=== PATIENT | male | born 1955 | race Caucasian/White ===

== ENCOUNTER 2017-06-28 15:09 | Inpatient (IN) | payer MEDICARE ==
[~2017-06-28] VITALS: Ht 182.9 cm; Wt 137.4 kg
[2017-06-28 15:15] VITALS: BP 138/65
[2017-06-28] MEDS ORDERED: LEVEMIR SUBQ (15:19)
[2017-06-28] MEDS ORDERED: MAGOX 400400 MG PO (15:19)
[2017-06-28] MEDS ORDERED: LISINOPRIL20 MG PO (15:19)
[2017-06-28] MEDS ORDERED: EFFEXOR XR75 MG PO (15:19)
[2017-06-28] MEDS ORDERED: METFORMIN HCL500 MG PO (15:19)
[2017-06-28] MEDS ORDERED: LOPRESSOR100 M1 PO (15:19)
[2017-06-28] MEDS ORDERED: ASPIR 8181 MG PO (15:19)
[2017-06-28 15:50] LABS: ABSOLUTE BASOPHILS 0.1 thou/uL (0.0-0.2); ABSOLUTE EOSINOPHILS 0.1 thou/uL (0.0-0.7); ABSOLUTE MONOCYTES 0.8 thou/uL (0.0-1.2); BASOPHILS 1.3 %; EOSINOPHILS 0.5 %; HEMATOCRIT 40.5 % (42.0-52.0); HEMOGLOBIN 13.6 gm/dL (14.0-18.0); LYMPHOCYTES 18.5 %; MCH 26.9 pg (26.0-34.0); MCHC 33.6 g/dL (28.0-37.0); MONOCYTES 6.9 %; MPV 8.6 fl. (7.2-11.1); NUCLEATED RBCS 0 /100WBC; PLATELET COUNT* 295 thou/uL (150-400); POLYS 72.8 %; RBC 5.07 mil/uL (4.50-6.00); RDW-CV 14.3 % (10.5-14.5)
[2017-06-28 15:58] LABS: CALCIUM 8.6 mg/dL (8.5-10.1); POTASSIUM 3.6 mmol/L (3.5-5.1)
--- NOTE | 2017-06-28 16:00 | NUR ---
PATIENT STATED THAT HE HAS BECOME HOMELESS OF 2 DAYS AGO AND HAS NOT RUN OUT OF MONEY SO OUT IN THE HEAT
[2017-06-28 16:15] LABS: ALBUMIN 3.5 g/dL (3.4-5.0); TOTAL BILIRUBIN 0.5 mg/dL (<0.1-1.0); TOTAL PROTEIN 7.1 g/dL (6.4-8.2)
[2017-06-28 16:16] LABS: NT-PRO BRAIN NAT PEPTIDE 224 pg/mL (<300); TROPONIN-I LEVEL <0.06 ng/mL (<0.06)
[2017-06-28 18:16] VITALS: BP 144/75
[2017-06-28 18:38] VITALS: BP 152/77
[2017-06-28] MEDS ORDERED: MELATONIN3 MG PO (18:41)
[2017-06-28] MEDS ORDERED: RISPERDAL0.5 MG PO (18:43)
[2017-06-28] MEDS ORDERED: LIPITOR80 MG PO (18:46)
--- NOTE | 2017-06-28 19:03 | NUR ---
REPORT RECIEVED FROM YESSY MATAMOROS IN ER OF EXPECTED TRANSFER AT 1800- DX: ARF ADN HEAT EXHAUTION- PT ARRIVED TO UNIT VIA CART AT 1821- PT TRANSFERED SBA WITH BED, STEADY GAIT NOTED- PT A&O X4- CONTINENT OF BOWEL AND BLADDER- LCTA, DIMINSHED IN BASES- VS 97.6 18 152/77 79 97% ON RA- DYSPNEA NOTED ON EXERTION- ABDOMEN OBESE/ROUND/NON-TENDER, BS X4 QUADS- PT REPORTS LAST BM THIS AM- SKIN C/D/I, SUN BURN, TATTOS, AND SCARS NOTED- IV NOTED TO RIGHT HAND INTACT, IVF INFUSING PRESCIBED- PT REPORTS TO HAVE RAN OUT OF MONEY AND HAS BEEN HOMELESS FOR 2 DAYS- HAS BELONGINGS AND MEDICATIONS WITH HIM AT TIME OF D/C- MEDICATIONS RECCONCILLED AND HOME MEDS SENT TO PHARMACY- PT REPORTS TO BE RECOVERED ALCOHOLIC AND HAS RELAPSED A FEE TIMES HERE RECENTLY BUT DENIES USE AT THIS CURRENT TIME- CHEWS TOBACCO- DENEIS ANY C/O PAIN/DISCOMFORT AT THIS TIME- CALL LIGHT AND PERSONAL BELONGINGS WITH IN REACH- ALL NEEDS MET AT THIS TIME-[facility]
[2017-06-28 19:35] VITALS: BP 138/68
--- NOTE | 2017-06-29 03:10 | NUR ---
ASSUMED CARE OF PT AT 1900. PT IS ALERT AND ORIENTED. VSS. PERRLA. NO COMPLAINTS OF PAIN. STEADY GAIT. PT IS SLEEPING QUIETLY IN BED. RESPIRATIONS ARE EVEN AND NONLABORED. WILL CONTINUE TO MONITOR PT.
[2017-06-29 07:50] VITALS: BP 106/59
--- NOTE | 2017-06-29 11:43 | NUR ---
Nutrition: Consult received for "homeless." Pt stated he has lost about 90#. He now weighs about 260#. H/o drug/ETOH use. Pt seemed very confused about his diabetes. He stated he has been a "type 1" since 2004. He stated he hasn't been checking his BG. He thought his last A1c was 7.7%. BG today is in 300s, no A1c recorded. On Metformin. He stated he eats a lot of fruits but he can't tell me how much he eats, "I just don't know." Pt would benefit greatly from outpatient DM counseling, but he told me he has no insurance right now. RD offered education today, but pt refused. He seemed confused. Food and nutrition-related knowledge deficit R/T DM diet AEB pt report. RECOMMEND OUTPATIENT COUNSELING FOR NUTRITION. Mild risk. No other nutrition interventions at this time.
[2017-06-29 16:00] VITALS: BP 143/70
--- NOTE | 2017-06-29 16:52 | NUR ---
SW met with pt to complete initial assessment, introduce self and SW role. Pt said he understands he might dc tomorrow and said he was not sure of his plan. SW offered homeless assisted resources and pt said he knew that there was not one close to this area, only in . SW provided Homeless Senior Living hotline number and [employer] info. SW mentioned pt girlfriend but pt said that he did not have her number and that he has short term memory issues. SW to follow.
--- NOTE | 2017-06-29 18:57 | NUR ---
PT VSS THIS SHIFT, PT HAS NO COMPLAINT OF PAIN THIS SHIFT. PT TOLERATING DIET AND NO C/O NAUSEA OR NUMBNESS OR TINGLING AT THIS TIME. FLUIDS RUNNING THIS SHIFT WITH NO COMPLICATIONS
[2017-06-29 20:00] VITALS: BP 141/69
[2017-06-30 00:30] VITALS: BP 139/62
[2017-06-30 04:53] VITALS: BP 146/68
--- NOTE | 2017-06-30 05:15 | NUR ---
ASSUMED PT CARE AT 1930, PT IS A&OX4. PT IS ON RA SATTING MID TO HIGH 90'S. PT HAS IVF INGFUSING PER MAR. PT DENIES ANY PAIN OR NEEDS AT THIS TIME. PT IS UP AD DONALD IN HIS ROOM. APPEARS TO BE STABLE ON HIS FEET. BED IN LOW POSITION, CALL LIGHT IN REACH, HOURLY ROUNDING COMPLETED FOR PT SAFETY.
[2017-06-30 08:00] VITALS: BP 133/73
[2017-06-30 11:49] LABS: CALCIUM 8.9 mg/dL (8.5-10.1); POTASSIUM 4.1 mmol/L (3.5-5.1)
--- NOTE | 2017-06-30 13:04 | EKG ---
[place] [address] ELECTROCARDIOGRAM REPORT Name: GURJIT CHOWDARY Room: [address] IN .R.#: [id number] Admission: 06/28/17 Attend Phys: Kain Wellington Discharge: Date of : 57 Report #: [id number] THIS REPORT FOR: //name// [facility] ED Test Date: 2017-06-28 Test Time: 18:10:15 Pat Name: GURJIT CHOWDARY Department: Room: Gender: Certified Rehabilitation Counselor: : 1955 Requested By: Jessy Jaime Order Number: [id number] MD: Gregory Sandoval Measurements Intervals [place] Rate: 77 P: 51 IA: 158 QRS: 77 QRSD: 116 T: 73 QT: 503 QTc: 570 Interpretive Statements Sinus rhythm Probable left atrial enlargement Nonspecific intraventricular conduction delay Minimal ST depression, lateral leads No previous ECG available for comparison Electronically Signed On 06-30-2017 13:04:43 CDT by Gregory Sandoval [email or web address] <ELECTRONICALLY SIGNED> By: Gregory Sandoval MD, [facility] 06/30/17 1304 1810 181 Gregory Sandoval MD, [facility] /EPI
[2017-06-30 16:00] VITALS: BP 139/68
--- NOTE | 2017-06-30 20:09 | NUR ---
I ASSUMED CARE OF THE PATIENT AT 0700. HE IS ALERT AND ORIENTED X4 AND IS UP AD DONALD. BED IS IN THE LOW LOCKED POSITION AND CALL LIGHT IS IN REACH. HOURLY ROUNDING WAS COMPLETED AND PATIENT NEEDS WERE MET. PAIN IS DENIED. BLOOD WORK COMPLETEDAND INSULIN D/C'D. PATIENT IS PROGRESSING TOWARD GOALS AND I WILL CONTINUE TO MONITOR. FLUIDS ARE INFUSING AND PATIENT IS TOLERATING WELL.
[2017-06-30 20:40] VITALS: BP 143/65
[2017-07-01 04:12] LABS: HEMATOCRIT 41.3 % (42.0-52.0); HEMOGLOBIN 13.7 gm/dL (14.0-18.0); MCH 26.7 pg (26.0-34.0); MCHC 33.1 g/dL (28.0-37.0); MCV 80.5 fL (80.0-100.0); MPV 8.7 fl. (7.2-11.1); RBC 5.13 mil/uL (4.50-6.00); RDW-CV 14.1 % (10.5-14.5); WBC 7.7 thou/uL (4.0-11.0)
--- NOTE | 2017-07-01 04:31 | NUR ---
PATIENT HAS REMAINED ALERT AND ORIENTED X 4. DENIES PAIN OR NAUSEA. UP WITH STEADY GAIT. IVF'S AND MEDS PER ORDERS. VITAL SIGNS STABLE. AM LAB PENDING. CONTINUE TO MONITOR.
[2017-07-01 04:32] LABS: CALCIUM 8.7 mg/dL (8.5-10.1); CREATININE 0.9 mg/dL (0.6-1.3); MAGNESIUM 1.4 mg/dL (1.8-2.4); POTASSIUM 3.9 mmol/L (3.5-5.1)
[2017-07-01 07:40] VITALS: BP 128/74
--- NOTE | 2017-07-01 07:40 | NUR ---
PT SITTING UP IN CHAIR COMPLAINT FREE. IVF INFUSING. URINAL WITHIN REACH
[2017-07-01 15:17] VITALS: BP 128/74
[2017-07-01] MEDS ORDERED: MIRALAX17 GM PO (15:17)
--- NOTE | 2017-07-01 16:10 | NUR ---
PT SHOWERED.PT GIVEN DISCHARGE INSTRUCTION. PT TO FOLLOW UP WITH [facility] WHICH PT HAS AN APPT FOR TOMORROW 07/02/17. PT AWAITING ARRIVAL OF GIRLFRIEND FOR TRANSPORT TO CURRENT LIVING SITUATION. PT HAS NO QUESTIONS ABOUT DISCHARGE INSTRUCTIONS.
--- NOTE | 2017-07-01 20:27 | NUR ---
PT CURRENTLY HAS DISCHARGE ORDERS; PT IS WAITING ON FIANCEE FOR RIDE; PT AT THIS POINT NO LONGER WANTS TO WAIT IN THE ROOM WANTS TO BE DISCHARGED; PT IS HOMELESS; OFFERED TO CALL [facility] FOR A BED TONIGHT; PT REFUSES, PT ATTEMPTED TO CONTACT OTHER PEOPLE WITH NO SUCCESS; PT REFUSED A CAB VOUCHER STATING A CAB VOUCHER WILL NOT HELP HE HAS NOT WHERE TO GO; PT REQUESTED TO BE DISCHARGED TO THE WAITING ROOM; HE WILL BE WAITING FOR HIS FIANCEE; THIS NURSE REPORTED THIS TO SECURITY AND INTRODUCED HERSELF AND WILL CHECK ON INDIVIDUAL IN THE WAITING AREA LATER.
--- NOTE | 2017-07-01 20:34 | NUR ---
DISCHARGED FROM ROOM TO ER WAITING ROOM WAITING FOR FIANCE PICK-UP IN STABLE CONDITION. ALL DISCHARGE INSTRUCTIONS GIVEN TO PATIENT BY DAYSHIFT. ALL BELONGINGS WITH PATIENT. IV HAS BEEN REMOVED.
== END 2017-07-01 20:37 | disposition home or self-care (01) | DRG 922 ==
LOC: M.ERS 15:09 → M.TBA-ER 17:22 → M.ORTHSURG 17:22
PROVIDERS: Family Medicine; Nurse Practitioner Family; ADMIT Internal Medicine
DX: T67.5XXA Heat exhaustion, unspecified, initial encounter (principal); N17.0 Acute kidney failure with tubular necrosis; Z68.41 Body mass index [BMI] 40.0-44.9, adult; E11.65 Type 2 diabetes mellitus with hyperglycemia; E66.01 Morbid (severe) obesity due to excess calories; I10 Essential (primary) hypertension; F17.220 Nicotine dependence, chewing tobacco, uncomplicated; E78.00 Pure hypercholesterolemia, unspecified; F32.9 Major depressive disorder, single episode, unspecified; E83.42 Hypomagnesemia; Z88.8 Allergy status to other drugs, medicaments and biological substances; Z79.82 Long term (current) use of aspirin; Z91.19 Patient's noncompliance with other medical treatment and regimen; X30.XXXA Exposure to excessive natural heat, initial encounter; Z79.899 Other long term (current) drug therapy

== ENCOUNTER 2017-07-02 14:38 | Emergency (ER) | payer OTHER, MEDICARE ==
[~2017-07-02] VITALS: Ht 182.9 cm; Wt 117.9 kg
[~2017-07-02 14:38] MED LIST: ASPIR 8181 MG PO; EFFEXOR XR75 MG PO; LEVEMIR SUBQ; LIPITOR80 MG PO; LISINOPRIL20 MG PO; LOPRESSOR100 M1 PO; MAGOX 400400 MG PO; MELATONIN3 MG PO; METFORMIN HCL500 MG PO; MIRALAX17 GM PO; RISPERDAL0.5 MG PO
[2017-07-02 14:56] LABS: ABSOLUTE BASOPHILS 0.1 thou/uL (0.0-0.2); ABSOLUTE EOSINOPHILS 0.1 thou/uL (0.0-0.7); ABSOLUTE LYMPHOCYTES 1.7 thou/uL (0.8-5.3); ABSOLUTE MONOCYTES 0.6 thou/uL (0.0-1.2); ABSOLUTE NEUTROPHILS 6.6 thou/uL (1.6-8.1); BASOPHILS 0.8 %; EOSINOPHILS 0.9 %; HEMATOCRIT 40.5 % (42.0-52.0); HEMOGLOBIN 13.5 gm/dL (14.0-18.0); LYMPHOCYTES 18.5 %; MCH 26.5 pg (26.0-34.0); MCHC 33.3 g/dL (28.0-37.0); MCV 79.7 fL (80.0-100.0); MPV 8.4 fl. (7.2-11.1); NUCLEATED RBCS 0 /100WBC; PLATELET COUNT* 273 thou/uL (150-400); POLYS 72.8 %; RBC 5.07 mil/uL (4.50-6.00); RDW-CV 14.2 % (10.5-14.5); WBC 9.1 thou/uL (4.0-11.0)
[2017-07-02 15:12] LABS: CREATININE 1.2 mg/dL (0.6-1.3); POTASSIUM 4.2 mmol/L (3.5-5.1)
[2017-07-02 15:17] LABS: ALBUMIN 3.2 g/dL (3.4-5.0); TOTAL BILIRUBIN 0.3 mg/dL (<0.1-1.0); TOTAL PROTEIN 6.8 g/dL (6.4-8.2)
[2017-07-02 15:24] VITALS: BP 149/68
--- NOTE | 2017-07-02 16:26 | EKG ---
[place] [address] ELECTROCARDIOGRAM REPORT Name: GURJIT CHOWDARY Room: [facility].#: [id number] Admission: 07/02/17 Attend Phys: Discharge: 07/02/17 Date of : 57 Report #: [id number] THIS REPORT FOR: //name// [facility] ED Test Date: 2017-07-02 Test Time: 15:00:25 Pat Name: GURJIT CHOWDARY Department: Room: Gender: M [employer] Designer: Ania AGUAYO : 1955 Requested By: Jett Block Order Number: [id number] MD: Charanjit Logan Measurements Intervals [place] Rate: 62 P: 48 [place]: 160 QRS: 75 QRSD: 108 T: 70 QT: 513 QTc: 521 Interpretive Statements Sinus rhythm Probable left atrial enlargement RSR' in V1 or V2, right VCD or RVH Prolonged QT interval Compared to ECG 06/28/2017 18:10:15 ST (T wave) deviation no longer present Electronically Signed On 07-02-2017 16:25:58 CDT by Charanjit Logan [email or web address] <ELECTRONICALLY SIGNED> By: Charanjit Logan MD, FACC 07/02/17 1625 1500 1500 Charanjit Logan MD, [facility] /EPI
== END 2017-07-02 15:24 | disposition home or self-care (01) ==
LOC: M.ERS 14:38
PROVIDERS: Family Medicine
DX: R06.00 Dyspnea, unspecified (principal); E11.9 Type 2 diabetes mellitus without complications; I10 Essential (primary) hypertension; F32.9 Major depressive disorder, single episode, unspecified; E78.00 Pure hypercholesterolemia, unspecified; F17.220 Nicotine dependence, chewing tobacco, uncomplicated; Z91.013 Allergy to seafood; Z79.4 Long term (current) use of insulin

== ENCOUNTER 2017-07-04 13:20 | Emergency (ER) | payer OTHER, MEDICARE ==
[~2017-07-04] VITALS: Ht 170.2 cm; Wt 113.4 kg
[2017-07-04] MEDS ORDERED: LOPRESSOR100 M1 PO (13:39)
[2017-07-04] MEDS ORDERED: LIPITOR80 MG PO (13:39)
[2017-07-04] MEDS ORDERED: LISINOPRIL20 MG PO (13:39)
[2017-07-04] MEDS ORDERED: MAGOX 400400 MG PO (13:39)
[2017-07-04] MEDS ORDERED: ASPIR 8181 MG PO (13:39)
[2017-07-04] MEDS ORDERED: RISPERDAL0.5 MG PO (13:39)
[2017-07-04] MEDS ORDERED: LEVEMIR SUBQ (13:39)
[2017-07-04] MEDS ORDERED: METFORMIN HCL500 MG PO (13:39)
[2017-07-04] MEDS ORDERED: EFFEXOR XR75 MG PO (13:39)
[2017-07-04] MEDS ORDERED: INSULIN SYRING1 EA13 SUBQ (13:41)
[2017-07-04 14:35] VITALS: BP 178/86
== END 2017-07-04 14:39 | disposition home or self-care (01) ==
LOC: M.ERS 13:20
DX: E11.9 Type 2 diabetes mellitus without complications (principal); Z76.0 Encounter for issue of repeat prescription; I10 Essential (primary) hypertension; F32.9 Major depressive disorder, single episode, unspecified; E78.00 Pure hypercholesterolemia, unspecified; F17.220 Nicotine dependence, chewing tobacco, uncomplicated; Z91.030 Bee allergy status; Z79.4 Long term (current) use of insulin